=== PATIENT | male | born 1970 | race Caucasian/White ===

== ENCOUNTER 2019-01-03 18:38 | Inpatient (IN) | payer BC ==
[~2019-01-03] VITALS: Ht 180.3 cm; Wt 78.1 kg
--- NOTE | ~2019-01-03 | EKG ---
[place], [place] ELECTROCARDIOGRAM REPORT NAME: KHLOE NGUYỄN UNIT #: [id number] ROOM: 402 DOCTOR: SANDY DRAFT REPORT BIRTHDATE: [birth year] 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
--- NOTE | ~2019-01-03 | EKG ---
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
--- NOTE | ~2019-01-03 | EKG ---
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
[~2019-01-03 18:38] MED LIST: NKHM; PEN-VEE K500 MG PO; TRAMADOL HCL50 MG PO
[2019-01-03 18:40] VITALS: BP 158/92
--- NOTE | 2019-01-03 19:50 | NUR ---
Pt cme to nurses desk and stated that the PT became very diaphoretic and pale. When entering the room Pt sitting on the side of the bed diaphoretic, Pt provided a cool wash cloth and ice pack. Ana Lilia Diamond and Radha RN notifed.
[2019-01-03] MEDS ORDERED: NORCO 5-325 TA1 EACH PO (19:57)
[2019-01-03 20:19] LABS: BASO # 0.1 10*3/uL (0.0-0.1); BASO % 0.5 % (0.0-1.0); EOS # 0.1 10*3/uL (0.0-0.4); EOS % 0.9 % (1.0-4.0); HEMATOCRIT 47.2 % (42.0-52.0); HEMOGLOBIN 16.4 g/dl (14.0-18.0); LYMPH # 1.6 10*3/uL (1.3-4.4); LYMPH % 15.1 % (27.0-41.0); MEAN CELL VOLUME 96.5 fl (80.0-94.0); MEAN CORPUSCULAR HGB 33.5 pg (27.0-31.0); MEAN CORPUSCULAR HGB CONC 34.7 g/dl (33.0-37.0); MEAN PLATELET VOLUME 8.6 fl (9.6-12.3); MONO # 1.2 10*3/uL (0.1-1.0); MONO % 10.9 % (3.0-9.0); NEUT # 7.8 10*3/uL (2.3-7.9); NEUT % 72.2 % (47.0-73.0); PLATELET COUNT AUTOMATED 213 10*3/uL (130-400); RED BLOOD COUNT 4.89 10*6/uL (4.50-5.90); RED CELL DISTRI WIDTH 12.3 % (0-14.5); WHITE BLOOD COUNT 10.8 10*3/uL (4.8-10.8)
[2019-01-03 20:29] LABS: INTERNATIONAL NORM RATIO 0.8 (2.0-3.5)
[2019-01-03 20:35] LABS: ALBUMIN 3.9 gm/dl (3.1-4.5); ALKALINE PHOSPHATASE 88 U/L (45-117); BUN 9 mg/dl (7-24); CHLORIDE 102 mmol/L (98-107); SGOT/AST 50 IU/L (3-35); SGPT/ALT 37 U/L (12-78); SODIUM 138 mmol/L (136-145); TOTAL PROTEIN 7.3 gm/dL (6.4-8.2)
--- NOTE | 2019-01-03 20:35 | NUR ---
PT SITTING IN A CHAIR. PT IS WARM DRY AND PINK AT THIS TIME. RIGHT SIDED RIB PAIN REMAINS, PT STATES " NOT BAD WHEN I CAME IT, BUT IT HURTS FOR SURE". WILL MONITOR.
[2019-01-03 20:42] LABS: TROPONIN I < 0.015 ng/ml (<0.045)
[2019-01-03 20:50] VITALS: BP 141/82
[2019-01-03 22:02] VITALS: BP 138/78
[2019-01-03 22:20] VITALS: BP 128/74
--- NOTE | 2019-01-03 22:59 | NUR ---
A 48, admitted to , under the services of IVONNE Acevedo DO with a diagnosis of RIB FRACTURE, NEAR SYNCOPE. Chief complaint is INJURY. Patient arrived via stretcher from ER. Monitor applied. Initial assessment completed. Vital signs taken and recorded. IVONNE ACEVEDO DO notified of admission to the unit. Orders received. See assessment for past medical history, medications and allergies. Patient and/or family oriented to unit. [facility] visitation policy reviewed. Clothing/patient valuable form completed. GIOVANNI EPSTEIN
--- NOTE | 2019-01-03 23:00 | NUR ---
PATIENT DENIES TAKING ANY HOME MEDICATIONS. CIGARETTES, 2 LIGHTERS, AND BEER COOZIE LOCKED IN ROOM.
[2019-01-04] VITALS: BP 121/71
--- NOTE | 2019-01-04 00:04 | NUR ---
PATIENT SITTING ON EDGE OF BED C/O RIGHT SIDED RIB PAIN. RATES 7/10. MEDICATED WITH PRN NORCO. VITALS WNL. WILL CHECK EFFECTIVENESS.
--- NOTE | 2019-01-04 00:11 | NUR ---
PATIENT REFUSING ORTHOS AT THIS TIME. STATES HE CANT LIE DOWN. WILL CONTINUE TO MONITOR
[2019-01-04 02:01] LABS: BASO % 0.4 % (0.0-1.0); EOS # 0.1 10*3/uL (0.0-0.4); EOS % 0.6 % (1.0-4.0); HEMATOCRIT 43.2 % (42.0-52.0); HEMOGLOBIN 14.9 g/dl (14.0-18.0); LYMPH # 1.6 10*3/uL (1.3-4.4); MEAN CELL VOLUME 96.6 fl (80.0-94.0); MEAN CORPUSCULAR HGB 33.3 pg (27.0-31.0); MEAN CORPUSCULAR HGB CONC 34.5 g/dl (33.0-37.0); MEAN PLATELET VOLUME 8.8 fl (9.6-12.3); MONO % 8.6 % (3.0-9.0); NEUT # 8.5 10*3/uL (2.3-7.9); NEUT % 76.2 % (47.0-73.0); PLATELET COUNT AUTOMATED 196 10*3/uL (130-400); RED BLOOD COUNT 4.47 10*6/uL (4.50-5.90); RED CELL DISTRI WIDTH 12.2 % (0-14.5); WHITE BLOOD COUNT 11.1 10*3/uL (4.8-10.8)
[2019-01-04 02:15] LABS: BUN 8 mg/dl (7-24); CHLORIDE 105 mmol/L (98-107); CREATININE 0.85 mg/dL (0.70-1.30); POTASSIUM 3.8 mmol/L (3.5-5.1); SODIUM 141 mmol/L (136-145)
[2019-01-04 02:20] LABS: CHOLESTEROL 172 mg/dL (<200); HDL CHOLESTEROL 95 mg/dl (40-60); LDL CHOLESTEROL 62 mg/dL (9-159); PHOSPHOROUS 3.6 mg/dL (2.5-4.9); TRIGLYCERIDES 74 mg/dl (<150); VLDL CHOLESTEROL 15 mg/dL (6-40)
[2019-01-04 08:00] VITALS: BP 122/70; BP 126/84; BP 126/85
--- NOTE | 2019-01-04 08:22 | NUR ---
PT C/O PAIN TO RIGHT SIDE. MORPHINE GIVEN AT THIS TIME. WILL MONITOR. IV SITE PATENT, FLUSHING WITH EASE. PT SITTING UP IN CHAIR BESIDE BED. CALL LIGHT IN REACH.
--- NOTE | 2019-01-04 09:00 | NUR ---
Burrer Marker Axle in to talk to patient. Patient states lives at home with his and 4 children. There are 12 steps in the home. Physician: no family physician [facility]acy: [facility] Home health services: none Patient's level of ADLs: INDEPENDENT Patient has working utilities: yes DME: none Follow-up physician's appointment after d/c: will be made by the hospitalist nurse director upon discharge Does patient want to access PORTAL?: no Discharge plan discussed with patient. He lives at home with his and 4 children. He is independent in his ADLs and ambulation. Discussed home health care services and he denies any home needs at this time. When medically stable she will be discharged to home. RACHNA GIORDANO
--- NOTE | 2019-01-04 09:22 | NUR ---
MORPHINE EFFECTIVE PER PT.
[2019-01-04 09:34] VITALS: BP 122/70
--- NOTE | 2019-01-04 10:57 | NUR ---
PT C/O RIB PAIN/RIGHT SIDE. RATES PAIN AN "8". NORCO GIVEN AT THIS TIME. WILL MONITOR FOR EFFECTIVENESS. ALL SAFETY MEASURES IN PLACE. CALL LIGHT IN REACH.
[2019-01-04 11:22] VITALS: BP 128/86
--- NOTE | 2019-01-04 11:57 | NUR ---
JOHN EFFECTIVE PER PT.
--- NOTE | 2019-01-04 14:01 | NUR ---
PT GIVEN MORPHINE AT THIS TIME FOR C/O PAIN TO RIGHT SIDE/RIB.
--- NOTE | 2019-01-04 15:01 | NUR ---
MORPHINE EFFECTIVE PER PT.
[2019-01-04 15:40] VITALS: BP 117/63
--- NOTE | 2019-01-04 18:03 | NUR ---
PT GIVEN NORCO AT THIS TIME FOR C/O RIGHT SIDE/RIB PAIN. RATES PAIN A "7". WILL MONITOR FOR EFFECTIVENESS. FAMILY AT BEDSIDE. CALL LIGHT IN REACH.
[2019-01-04 20:00] VITALS: BP 121/63
--- NOTE | 2019-01-04 20:13 | NUR ---
PATIENT SLEEPING. NO SIGNS OF DISTRESS. RESPIRATIONS EASY NON LABORED. BED IN LOWEST POSITION CALL LIGHT WITHIN REACH. WILL CONTINUE TO MONITOR.
[2019-01-05] VITALS: BP 116/72
--- NOTE | 2019-01-05 03:49 | NUR ---
PATIENT MEDICATED FOR RIGHT SIDED RIB PAIN. RATES 04/02. MEDICATED WITH PRN MORPHINE. WILL CHECK EFFECTIVENESS.
[2019-01-05 08:49] VITALS: BP 138/83
--- NOTE | 2019-01-05 08:51 | NUR ---
PT GIVEN MORPHINE AT THIS TIME FOR RIB PAIN/RIGHT SIDE. PAIN RATED AN "8". WILL MONITOR FOR EFFECTIVENESS. PT SITTING UP IN CHAIR. ALERT AND COOPERATIVE. WILL CONTINUE TO MONITOR. CALL LIGHT IN REACH.
--- NOTE | 2019-01-05 09:51 | NUR ---
MORPHINE EFFECTIVE PER PT.
[2019-01-05] MEDS ORDERED: VITAMIN B-12100 MCG PO (11:23)
[2019-01-05] MEDS ORDERED: NORCO 5-325 TA1 EACH PO (11:23)
[2019-01-05] MEDS ORDERED: PHARMASSURE FO0.4 MG PO (11:23)
[2019-01-05 11:26] VITALS: BP 108/66
--- NOTE | 2019-01-05 12:04 | NUR ---
PT GIVEN NORCO AT THIS TIME FOR C/O PAIN TO RIGHT SIDE/RIGHT RIB. WILL MONITORO FOR EFFECTIVENESS. CALL LIGHT IN REACH.
[2019-01-05] MEDS ORDERED: NICOTINE PATCH1 EAC2 TD (12:17)
--- NOTE | 2019-01-05 12:33 | NUR ---
Discharge instructions reviewed with patient/family. Patient receptive and verbalizes understanding. Follow-up care arranged. Written instructions given to patient/family. MADDY WOODY
== END 2019-01-05 12:33 | disposition home or self-care (01) | DRG 206 ==
LOC: ED 18:38 → EDHOLD 21:36 → 4E 21:36 → EDHOLD 21:45 → 4E 22:13
PROVIDERS: Physician Assistant; Student in an Organized Health Care Education/Training Program; ADMIT Internal Medicine
DX: S22.31XA Fracture of one rib, right side, initial encounter for closed fracture (principal); W11.XXXA Fall on and from ladder, initial encounter; F17.210 Nicotine dependence, cigarettes, uncomplicated; D75.89 Other specified diseases of blood and blood-forming organs; E80.6 Other disorders of bilirubin metabolism; R74.0 Nonspecific elevation of levels of transaminase and lactic acid dehydrogenase [LDH]; E53.8 Deficiency of other specified B group vitamins; E55.9 Vitamin D deficiency, unspecified; I95.1 Orthostatic hypotension; Y93.89 Activity, other specified; Y92.89 Other specified places as the place of occurrence of the external cause; Y99.8 Other external cause status; Z71.6 Tobacco abuse counseling; Z72.89 Other problems related to lifestyle

== ENCOUNTER → 2019-08-15 | Outpatient (CLI) | payer BC ==
[~2019-08-15] MED LIST changes: +NICOTINE PATCH1 EAC2 TD; +NORCO 5-325 TA1 EACH PO; +PHARMASSURE FO0.4 MG PO; +VITAMIN B-12100 MCG PO
[2019-08-15 12:18] LABS: HEMATOCRIT 45.8 % (42.0-52.0); MEAN CELL VOLUME 95.8 fl (80.0-94.0); MEAN CORPUSCULAR HGB 33.5 pg (27.0-31.0); MEAN CORPUSCULAR HGB CONC 34.9 g/dl (33.0-37.0); MEAN PLATELET VOLUME 8.8 fl (9.6-12.3); RED BLOOD COUNT 4.78 10*6/uL (4.50-5.90); RED CELL DISTRI WIDTH 11.9 % (0-14.5); WHITE BLOOD COUNT 8.3 10*3/uL (4.8-10.8)
[2019-08-15 13:07] LABS: ALBUMIN 4.2 gm/dl (3.1-4.5); ALKALINE PHOSPHATASE 81 U/L (45-117); BUN 9 mg/dl (7-24); CHLORIDE 106 mmol/L (98-107); CHOLESTEROL 212 mg/dL (<200); HDL CHOLESTEROL 122 mg/dl (40-60); LDL CHOLESTEROL 64 mg/dL (9-159); POTASSIUM 3.7 mmol/L (3.5-5.1); SGOT/AST 76 IU/L (3-35); SGPT/ALT 81 U/L (12-78); SODIUM 138 mmol/L (136-145); TOTAL PROTEIN 7.5 gm/dL (6.4-8.2); TRIGLYCERIDES 128 mg/dl (<150); VLDL CHOLESTEROL 26 mg/dL (6-40)
[2019-08-16 06:08] LABS: HEPATITIS B SURFACE AG Negative (Negative); HEPATITIS C VIRUS ANTIBODY 0.1 s/co (0.0-0.9)
[2019-08-16 09:09] LABS: PROSTATE SPECIFIC AG FREE 0.12 ng/mL; PROSTATE SPECIFIC AG, SERUM 0.7 ng/mL (0.0-4.0)
== END | disposition home or self-care (01) ==
LOC: LAB 11:56
PROVIDERS: Nurse Practitioner Family
DX: E55.9 Vitamin D deficiency, unspecified (principal); F10.20 Alcohol dependence, uncomplicated; R35.0 Frequency of micturition; R53.83 Other fatigue